=== PATIENT | female | born 1960 | race Two or more races ===

== ENCOUNTER 2020-12-30 03:42 | Observation (INO) | payer OTHER ==
[~2020-12-30] VITALS: Ht 162.6 cm; Wt 76.1 kg
[2020-12-31 12:52] VITALS: BP 101/66
== END 2020-12-31 14:00 | disposition home or self-care (01) ==
LOC: ED 08:11 → INTOOBSV 08:30 → 3N 08:30 → 4WST 12:28
PROVIDERS: ADMIT Emergency Medicine; ATTEND Emergency Medicine
DX: E11.649 Type 2 diabetes mellitus with hypoglycemia without coma (principal); I21.4 Non-ST elevation (NSTEMI) myocardial infarction; E78.5 Hyperlipidemia, unspecified; Z79.4 Long term (current) use of insulin; Z79.899 Other long term (current) drug therapy
CPT/HCPCS: 36415; 80053; 80061; 81001; 81003; 82010; 82803; 82962; 83036; 83690; 83735; 84100; 84443; 84484; 85025; 87077; 87086; 87186; 93005; 96361; 96365; 96372; 97161; 97166; 99285; G0378; J0696; J1644; J1815; J7042